=== PATIENT | female | born 1995 | race Caucasian/White ===

== ENCOUNTER 2024-05-26 15:04 | Emergency (ER) | payer OTHER ==
[~2024-05-26] VITALS: Ht 182.9 cm; Wt 124.3 kg
[~2024-05-26 15:04] MED LIST: ONDA4ODT MM
[2024-05-26 15:53] VITALS: BP 154/82
[2024-05-26] MEDS ORDERED: Ketorolac Tromethamine 30mg Vial IM ONE (17:35)
== END 2024-05-26 17:59 | disposition home or self-care (01) ==
LOC: ER 15:04
DX: M54.42 Lumbago with sciatica, left side (principal)
CPT/HCPCS: 96372; 99283-25; J1885